=== PATIENT | female | born 1990 ===

== ENCOUNTER 2016-11-13 22:05 | Emergency (ER) | payer SELFPAY ==
[2016-11-13 22:36] VITALS: BP 119/75; PULSE 74; RESP 18; TEMP 98.9; O2SAT 100
--- NOTE | 2016-11-13 22:46 | ED PDOC ---
HPI: Abdomen Time Seen by Provider: 11/13/16 22:39 Chief Complaint (Nursing): Abdominal Pain History Per: Patient (Sharp RLQ abd pain x 2 days. Not assoc with NVD no urinary sxs. No fever. Irregular periods x 3 months. Pain radiates to right side back) Onset/Duration Of Symptoms: Days (2) Current Symptoms Are (Timing): Still Present Severity: Mild Pain Scale Rating Of: 2 Location Of Pain/Discomfort: RLQ Quality Of Discomfort: Sharp Associated Symptoms: denies: Fever, Nausea, Vomiting, Diarrhea, Urinary Symptoms Exacerbating Factors: None Alleviating Factors: None Abnormal Vaginal Bleeding: Yes Past Medical History Vital Signs: Last Vital Signs Temp 98.9 F 11/13/16 22:31 Pulse 74 11/13/16 22:31 Resp 18 11/13/16 22:31 BP 119/75 11/13/16 22:31 Pulse Ox 100 11/13/16 22:46 - Surgical History Other surgeries: C section - Family History Family History: States: Unknown Family Hx - Allergies Allergies/Adverse Reactions: Allergies Allergy/AdvReac Type Severity Reaction Status Date / Time No Known Allergies Allergy Verified 11/13/16 22:31 Review of Systems ROS Statement: Except As Marked, All Systems Reviewed And Found Negative Gastrointestinal: Positive for: Abdominal Pain Physical Exam - Reviewed Nursing Documentation Reviewed: Yes Vital Signs Reviewed: Yes - Physical Exam Appears: Positive for: Non-toxic, No Acute Distress Head Exam: Positive for: ATRAUMATIC, NORMAL INSPECTION, NORMOCEPHALIC Skin: Positive for: Normal Color, Warm, DRY Eye Exam: Positive for: EOMI, Normal appearance, PERRL ENT: Positive for: Normal ENT Inspection Neck: Positive for: Normal, Painless ROM Cardiovascular/Chest: Positive for: Regular Rate, Rhythm Respiratory: Positive for: CNT, Normal Breath Sounds Gastrointestinal/Abdominal: Positive for: Bowel Sounds, Soft, Tenderness (RLQ) Back: Positive for: Normal Inspection Extremity: Positive for: Normal ROM Neurologic/Psych: Positive for: Alert, Oriented - Laboratory Results Result Diagrams: 11/13/16 23:36 11/13/16 23:36 - ECG O2 Sat by Pulse Oximetry: 100 Disposition - Clinical Impression Clinical Impression: Abdominal pain - Patient ED Disposition Is Patient to be Admitted: Transfer of Care - Disposition Disposition: Transfer of Care Disposition Time: 23:55 Condition: FAIR Forms: [employer] (Malagasy) Patient Signed Over To: Odilon Martinez
[2016-11-13] MEDS ORDERED: Sodium Chloride 0.9% 1,000 ML IV STA (23:40)
[2016-11-13 23:41] LABS: BASO # 0.1 K/uL (0.0-0.2); BASO % 0.7 % (0.0-2.0); EOS # 0.2 K/uL (0.0-0.7); EOS % 2.3 % (0.0-4.0); HEMOGLOBIN 13.3 g/dL (12.0-16.0); LYMPH # 3.5 K/uL (1.0-4.3); LYMPH % 41.3 % (20.0-40.0); MEAN CELL VOLUME 84.8 fl (81.0-99.0); MEAN CORPUSCULAR HEMOGLOBIN 28.1 pg (27.0-31.0); MEAN CORPUSCULAR HGB CONC 33.1 g/dL (33.0-37.0); MEAN PLATELET VOLUME 8.4 fl (7.2-11.7); MONO # 0.8 K/uL (0.0-0.8); MONO % 9.4 % (0.0-10.0); NEUT # 3.9 K/uL (1.8-7.0); NEUT % 46.3 % (50.0-75.0); NRBC % 0.1 % (0.0-0.0); RBC 4.73 Mil/uL (3.80-5.20); RED CELL DISTRIBUTION WIDTH 13.6 % (11.5-14.5); WHITE BLOOD COUNT 8.5 K/uL (4.8-10.8)
[2016-11-13 23:49] LABS: ALB/GLOB RATIO 1.4 (1.0-2.1); ALBUMIN 4.4 g/dL (3.5-5.0); ALT/SGPT 54 U/L (9-52); AST/SGOT 30 U/L (14-36); BLOOD UREA NITROGEN 15 mg/dl (7-17); CALCIUM 8.8 mg/dL (8.4-10.2); GFR AFRICAN-AMERICAN > 60; GFR NON-AFRICAN AMERICAN > 60
--- NOTE | 2016-11-14 00:15 | ED PDOC ---
- Laboratory Results Result Diagrams: 11/13/16 23:36 11/13/16 23:36 - ECG O2 Sat by Pulse Oximetry: 100 Medical Decision Making Medical Decision Makin Patient signed out to me from Dr. Juarez pending CT and US. Scribe Attestation: Documented by Jelena Patterson acting as a scribe for Odilon Martinez MD. Scribe Attestation: All medical record entries made by the Scribe were at my direction and personally dictated by me. I have reviewed the chart and agree that the record accurately reflects my personal performance of the history, physical exam, medical decision making, and the department course for this patient. I have also personally directed, reviewed, and agree with the discharge instructions and disposition. Disposition - Clinical Impression Clinical Impression: Abdominal pain - POA Present On Arrival: None - Disposition Referrals: [facility] [Outside] [facility] [Outside] Disposition: Hospitalized as Observation Patient Disposition Time: 00:00 Condition: FAIR Prescriptions: Dicyclomine [Dicyclomine HCl] 10 mg PO BID #20 cap Instructions: Pelvic Pain in Women (ED) Forms: [employer] (Kosovan) Print Language: MARSHALLESE ED OBSERVATION Discharge: Yes Date of observation admission: 11/14/16 Time of observation admission: 00:00 - Observation admission statement Patient is being placed in observation because:: Pending CT and US - Goals of Observation Goals of observation are:: CT and US results - Progress Note Progress Note: 11/14/16 01:18 Patient resting comfortably in room. Vitals stable. 11/14/16 01:30 CT FINDINGS Lower thorax: No acute findings. ABDOMEN: Liver: Unremarkable. No mass. Gallbladder and bile ducts: Unremarkable. No calcified stones. No ductal dilation. Pancreas: Unremarkable. No mass. No ductal dilation. Spleen: Unremarkable. No splenomegaly. Adrenals: Unremarkable. No mass. Kidneys and ureters: No obstructive or nonobstructive uropathy. Stomach and bowel: Unremarkable. No obstruction. No mucosal thickening. Appendix: The appendix is normal. PELVIS: Bladder: Unremarkable. No mass. Reproductive: Unremarkable as visualized. ABDOMEN and PELVIS: Intraperitoneal space: Unremarkable. No free air. No significant fluid collection. Bones/joints: No acute fracture. No dislocation. Soft tissues: Unremarkable. Vasculature: Unremarkable. No abdominal aortic aneurysm. Lymph nodes: Unremarkable. No enlarged lymph nodes. IMPRESSION: No acute obstructive or inflammatory process in the abdomen or pelvis. 11/14/16 02:33 US FINDINGS The uterus is normal. The endometrium measures 8 mm. Both ovaries measure approximately 3 x 2 x 2 centimeters. Bilateral ovarian follicles are present. Color flow and doppler vascular waveforms were demonstrated to both ovaries. There is no significant free fluid. IMPRESSION: No acute findings. 11/14/16 02:42 Upon re-evaluation, patient is feeling better and is stable for discharge home. [facility]. Return precautions given.
[2016-11-14] MEDS ORDERED: Sodium Chloride 0.9% 50 ML IV ONE (00:48)
[2016-11-14] MEDS ORDERED: Iohexol 300 100 ML IJ ONE (00:48)
--- NOTE | 2016-11-14 02:27 | US ---
EXAM: US Pelvis, Transvaginal CLINICAL HISTORY: 26 years old, female; Pain; Pelvic pain; Prior surgery; Surgery date: 6+ months; Surgery type: 2 c-sections; Additional info: Rlq pain TECHNIQUE: Real-time transvaginal pelvic ultrasound (complete) with image documentation. Transvaginal imaging was used for better evaluation of the endometrium and adnexa. EXAM DATE/TIME: 11/13/2016 11:58 PM COMPARISON: No relevant prior studies available. FINDINGS: The uterus is normal. The endometrium measures 8 mm. Both ovaries measure approximately 3 x 2 x 2 centimeters. Bilateral ovarian follicles are present. Color flow and doppler vascular waveforms were demonstrated to both ovaries. There is no significant free fluid. IMPRESSION: No acute findings.
--- NOTE | 2016-11-14 07:53 | CT ---
PROCEDURE: CT Abdomen and Pelvis with contrast HISTORY: RLQ pain COMPARISON: None. TECHNIQUE: Contrast dose: Omnipaque 300, 90 cc. Radiation dose: Total exam DLP = 450 mGy-cm. This CT exam was performed using one or more of the following dose reduction techniques: Automated exposure control, adjustment of the mA and/or kV according to patient size, and/or use of iterative reconstruction technique. FINDINGS: LOWER THORAX: Unremarkable. LIVER: Diffuse fatty infiltration of the liver is appreciated without focal mass or intrahepatic biliary dilatation evident. GALLBLADDER AND BILE DUCTS: Unremarkable. PANCREAS: Unremarkable. No gross lesion or ductal dilatation. SPLEEN: Unremarkable. ADRENALS: Unremarkable. No mass. KIDNEYS AND URETERS: Unremarkable. No hydronephrosis. No solid mass. VASCULATURE: Unremarkable. No aortic aneurysm. BOWEL: The stomach is distended with retained food. Unremarkable. No obstruction. No gross mural thickening. APPENDIX: Normal appendix. PERITONEUM: Unremarkable. No free fluid. No free air. LYMPH NODES: Shotty mesenteric and retroperitoneal nodes are identified without prominent lymphadenopathy identified. . BLADDER: Unremarkable. REPRODUCTIVE: Unremarkable. BONES: No acute fracture. OTHER FINDINGS: None. IMPRESSION: Nonacute abdomen pelvis CT examination. Diffuse fatty infiltration of the liver is identified. Concur with preliminary report by rad radiologist Dr. Raul Thomson.
== END 2016-11-14 03:03 | disposition home or self-care (01) ==
LOC: H.ER 22:05
DX: N83.00 Follicular cyst of ovary, unspecified side (principal); K76.0 Fatty (change of) liver, not elsewhere classified
CPT/HCPCS: 74177; 76830; 80053; 81025; 85025; 96374; 99282; J1885; J7040; Q9967

== ENCOUNTER 2017-03-14 20:31 | Emergency (ER) | payer OTHER ==
[2017-03-14 20:43] VITALS: BP 100/69; PULSE 86; RESP 16; TEMP 98.3; O2SAT 99
[2017-03-14] MEDS ORDERED: Sodium Chloride 0.9% 1,000 ML IV STA (21:29)
[2017-03-14 21:59] LABS: HEMATOCRIT 39.9 % (34.0-47.0); MEAN CELL VOLUME 84.7 fl (81.0-99.0); MEAN CORPUSCULAR HEMOGLOBIN 27.8 pg (27.0-31.0); MEAN CORPUSCULAR HGB CONC 32.8 g/dL (33.0-37.0); RED CELL DISTRIBUTION WIDTH 13.9 % (11.5-14.5); WHITE BLOOD COUNT 11.7 K/uL (4.8-10.8)
[2017-03-14 22:07] LABS: ALB/GLOB RATIO 1.3 (1.0-2.1); ALKALINE PHOSPHATASE 99 U/L (38-126); ALT/SGPT 47 U/L (9-52); AST/SGOT 32 U/L (14-36); BILIRUBIN,TOTAL 0.5 mg/dl (0.2-1.3); BLOOD UREA NITROGEN 18 mg/dl (7-17); CALCIUM 8.8 mg/dL (8.4-10.2); CARBON DIOXIDE 24 mmol/L (22-30); CHLORIDE 105 mmol/L (98-107); GFR AFRICAN-AMERICAN > 60; GLUCOSE,RANDOM 90 mg/dL (65-105); POTASSIUM 3.7 MMOL/L (3.6-5.0); SODIUM 139 mmol/l (132-148)
--- NOTE | 2017-03-14 23:20 | US ---
EXAM: US Pelvis, Transvaginal CLINICAL HISTORY: 26 years old, female; Pain; Pelvic pain; Additional info: Vaginal bleeding, right sided pain - preg (-) TECHNIQUE: Real-time transvaginal pelvic ultrasound (complete) with image documentation. Transvaginal imaging was used for better evaluation of the endometrium and adnexa. COMPARISON: No relevant prior studies available. FINDINGS: Uterus/cervix: Uterus measures 8 x 5.8 x 4.5 CM. Endometrium measures 7 mm in thickness. No myometrial mass. Right ovary: Right ovary measures 3.2 x 2.4 x 3.3 CM. 1.8 x 1.1 x 1.8 CM simple cyst. Normal blood flow. Left ovary: Left ovary measures 2.1 x 1.3 x 2.0 CM. Normal blood flow. Free fluid: No free fluid. Bladder: Empty bladder which cannot be evaluated with this probe. IMPRESSION: Uterus is unremarkable. No adnexal masses.
--- NOTE | 2017-03-14 23:37 | ED PDOC ---
HPI: Female Pain Time Seen by Provider: 03/14/17 21:08 Chief Complaint (Nursing): Female Genitourinary Chief Complaint (Provider): Right sided pelvic pain, abnormal menses History Per: Patient History/Exam Limitations: no limitations Onset/Duration Of Symptoms: Days Current Symptoms Are (Timing): Still Present Severity: Moderate Pain Scale Rating Of: 5 Quality Of Discomfort: Sharp, Cramping Associated Symptoms: Nausea. denies: Fever, Chills, Loss Of Appetite Alleviating Factors: None Additional Complaint(s): Pt states her menses was normal January 26 and she had vaginal bleeding for 1 day February 26. Pt states she than began bleeding again 3 days ago. Pt states she has yellow/orange fluid coming from the vaginal. Pt denies dysuria. Pt states that she has been taking pyridum for right sided pelvic pain but it is not working. Past Medical History Reviewed: Historical Data, Nursing Documentation, Vital Signs Vital Signs: Last Vital Signs Temp 98.3 F 03/14/17 20:40 Pulse 86 03/14/17 20:40 Resp 16 03/14/17 20:40 BP 100/69 03/14/17 20:40 Pulse Ox 99 03/14/17 20:40 - Medical History PMH: No Chronic Diseases - Surgical History Surgical History: No Surg Hx - Family History Family History: States: Unknown Family Hx - Home Medications Home Medications: Ambulatory Orders Medication Instructions Recorded Dicyclomine [Dicyclomine HCl] 10 mg PO BID #20 cap 11/14/16 Ibuprofen [Motrin Tab] 800 mg PO Q6H PRN #20 tab 03/14/17 - Allergies Allergies/Adverse Reactions: Allergies Allergy/AdvReac Type Severity Reaction Status Date / Time No Known Allergies Allergy Verified 03/14/17 20:40 Review of Systems ROS Statement: Except As Marked, All Systems Reviewed And Found Negative Constitutional: Negative for: Fever, Chills Gastrointestinal: Negative for: Nausea, Vomiting Genitourinary Female: Positive for: Vaginal Bleeding, Pelvic Pain Physical Exam - Reviewed Nursing Documentation Reviewed: Yes Vital Signs Reviewed: Yes - Physical Exam Appears: Positive for: Well, Non-toxic, No Acute Distress Head Exam: Positive for: ATRAUMATIC, NORMAL INSPECTION, NORMOCEPHALIC Skin: Positive for: Normal Color, Warm, DRY Eye Exam: Positive for: Normal appearance ENT: Positive for: Normal ENT Inspection Neck: Positive for: Normal, Painless ROM Cardiovascular/Chest: Positive for: Regular Rate, Rhythm Respiratory: Positive for: Normal Breath Sounds. Negative for: Accessory Muscle Use, Respiratory Distress Gastrointestinal/Abdominal: Positive for: Normal Exam, Bowel Sounds, Soft. Negative for: Tenderness Pelvic Exam: Positive for: External Exam Normal, No Cerv. Motion Tender, No Masses, Discharge (Yellow/orange, homogenous ). Negative for: Bimanual Exam Normal (Right sided tenderness ), Active Bleeding Back: Positive for: Normal Inspection Extremity: Positive for: Normal ROM Neurologic/Psych: Positive for: Alert, Oriented - Laboratory Results Result Diagrams: 03/14/17 21:49 03/14/17 21:49 - ECG O2 Sat by Pulse Oximetry: 99 Disposition - Clinical Impression Clinical Impression: Abnormal menses, Ovarian cyst - Patient ED Disposition Is Patient to be Admitted: No Counseled Patient/Family Regarding: Diagnosis - Disposition Disposition: Routine/Home Disposition Time: 23:39 Condition: GOOD Prescriptions: Ibuprofen [Motrin Tab] 800 mg PO Q6H PRN #20 tab PRN Reason: Pain Instructions: Ovarian Cyst (ED) Print Language: SERBIAN
== END 2017-03-15 00:29 | disposition home or self-care (01) ==
LOC: H.ER 20:31
DX: N83.202 Unspecified ovarian cyst, left side (principal); N93.9 Abnormal uterine and vaginal bleeding, unspecified
CPT/HCPCS: 76830; 80053; 81025; 85027; 87070; 87086; 87491; 87591; 96361; 96374; 96375; 99283; J1885; J2270; J7040

== ENCOUNTER 2017-05-20 13:56 | Emergency (ER) | payer OTHER ==
[2017-05-20 14:15] VITALS: BP 113/63; PULSE 74; RESP 16; TEMP 98; O2SAT 99
--- NOTE | 2017-05-20 16:46 | ED PDOC ---
HPI: Headache Time Seen by Provider: 05/20/17 16:30 Chief Complaint (Nursing): Headache Chief Complaint (Provider): Headache History Per: Patient History/Exam Limitations: no limitations Onset/Duration Of Symptoms: Days (x4) Current Symptoms Are (Timing): Still Present Additional Complaint(s): 26 year old female presents to the ER complaining of a constant headache for 4 days. Associated with watery diarrhea (occurring after meals) and nausea. Denies any cough, fever, chills, or body aches. Patient has not taken any medications for symptom relief prior to arrival. PMD: None Past Medical History Reviewed: Historical Data, Nursing Documentation, Vital Signs Vital Signs: Last Vital Signs Temp 98.0 F 05/20/17 14:13 Pulse 74 05/20/17 14:13 Resp 16 05/20/17 14:13 BP 113/63 05/20/17 14:13 Pulse Ox 99 05/20/17 14:13 - Family History Family History: States: Unknown Family Hx - Home Medications Home Medications: Ambulatory Orders Medication Instructions Recorded Dicyclomine [Dicyclomine HCl] 10 mg PO BID #20 cap 11/14/16 Ibuprofen [Motrin Tab] 800 mg PO Q6H PRN #20 tab 03/14/17 Acetaminophen/Butalbital/Caf 1 tab PO Q4 #10 tab 05/20/17 [Fioricet] - Allergies Allergies/Adverse Reactions: Allergies Allergy/AdvReac Type Severity Reaction Status Date / Time No Known Allergies Allergy Verified 03/14/17 20:40 Review of Systems ROS Statement: Except As Marked, All Systems Reviewed And Found Negative Constitutional: Negative for: Fever, Chills, Other (Body aches) Respiratory: Negative for: Cough Gastrointestinal: Positive for: Nausea, Diarrhea Neurological: Positive for: Headache Physical Exam - Reviewed Nursing Documentation Reviewed: Yes Vital Signs Reviewed: Yes - Physical Exam Appears: Positive for: Non-toxic, No Acute Distress Head Exam: Positive for: ATRAUMATIC, NORMAL INSPECTION, NORMOCEPHALIC Skin: Positive for: Normal Color, Warm, Dry Eye Exam: Positive for: EOMI, Normal appearance, PERRL Neck: Positive for: Normal (with bilateral paracervical tenderness) Cardiovascular/Chest: Positive for: Regular Rate, Rhythm. Negative for: Murmur Respiratory: Positive for: Normal Breath Sounds. Negative for: Accessory Muscle Use, Respiratory Distress Gastrointestinal/Abdominal: Positive for: Normal Exam, Soft. Negative for: Tenderness Neurologic/Psych: Positive for: Alert, Oriented - Laboratory Results Result Diagrams: 05/20/17 17:22 05/20/17 17:22 - ECG O2 Sat by Pulse Oximetry: 99 (RA) Pulse Ox Interpretation: Normal Medical Decision Making Medical Decision Making: Time: 16:48 Initial Plan: --BMP --CBC --Sodium chloride IV 1000 ml at 1000 mls/hr --Reglan 10 mg IV --Pepcid 20 mg IV Scribe Attestation: Documented by Senia Duong, acting as a scribe for Lissette Chi PA-C Provider Scribe Attestation: All medical record entries made by the Scribe were at my direction and personally dictated by me. I have reviewed the chart and agree that the record accurately reflects my personal performance of the history, physical exam, medical decision making, and the department course for this patient. I have also personally directed, reviewed, and agree with the discharge instructions and disposition. Disposition - Clinical Impression Clinical Impression: Headache - Patient ED Disposition Is Patient to be Admitted: Transfer of Care - Disposition Referrals: [facility] [Outside] Disposition: Transfer of Care Disposition Time: 18:00 Condition: FAIR Prescriptions: Acetaminophen/Butalbital/Caf [Fioricet] 1 tab PO Q4 #10 tab Instructions: Migraine Headache (ED) Forms: [employer] (Dutch), [facility] ED School/Work Excuse Print Language: EAST TIMORESE Patient Signed Over To: Maranda Landa Handoff Comments: RE-EVALUATION
[2017-05-20] MEDS ORDERED: Sodium Chloride 0.9% 1,000 ML IV STA (16:49)
[2017-05-20 17:26] LABS: BASO # 0.1 K/uL (0.0-0.2); BASO % 0.8 % (0.0-2.0); EOS # 0.1 K/uL (0.0-0.7); EOS % 1.2 % (0.0-4.0); HEMOGLOBIN 13.4 g/dL (12.0-16.0); LYMPH % 31.7 % (20.0-40.0); MEAN CELL VOLUME 84.9 fl (81.0-99.0); MEAN CORPUSCULAR HGB CONC 32.9 g/dL (33.0-37.0); MEAN PLATELET VOLUME 8.5 fl (7.2-11.7); MONO # 0.7 K/uL (0.0-0.8); MONO % 7.8 % (0.0-10.0); NEUT # 5.6 K/uL (1.8-7.0); NEUT % 58.5 % (50.0-75.0); NRBC % 0.1 % (0.0-0.0); RBC 4.78 Mil/uL (3.80-5.20); WHITE BLOOD COUNT 9.5 K/uL (4.8-10.8)
[2017-05-20 17:56] LABS: BLOOD UREA NITROGEN 16 mg/dl (7-17); CALCIUM 9.2 mg/dL (8.4-10.2); GFR AFRICAN-AMERICAN > 60; GFR NON-AFRICAN AMERICAN > 60
--- NOTE | 2017-05-20 18:42 | ED PDOC ---
- Laboratory Results Result Diagrams: 05/20/17 17:22 05/20/17 17:22 - ECG O2 Sat by Pulse Oximetry: 99 (RA) Medical Decision Making Medical Decision Making: Case endorsed to medical writer from VERO Chi at 1800 pending re-eval 1900: pt asking to go home. reports feeling improved. neuro exam remains non focal Disposition - Clinical Impression Clinical Impression: Headache - POA Present On Arrival: None - Disposition Referrals: [facility] [Outside] Disposition: Routine/Home Disposition Time: 19:35 Condition: FAIR Prescriptions: Acetaminophen/Butalbital/Caf [Fioricet] 1 tab PO Q4 #10 tab Instructions: Migraine Headache (ED) Forms: [employer] (Anguillan), [facility] ED School/Work Excuse Print Language: MOZAMBICAN
== END 2017-05-20 19:30 | disposition home or self-care (01) ==
LOC: H.ER 13:56
DX: R51 Headache (principal)
CPT/HCPCS: 80048; 81025; 85025; 96374; 96375; 99284; J2765; J7040

== ENCOUNTER 2017-08-10 18:48 | Emergency (ER) | payer OTHER ==
[2017-08-10 19:01] VITALS: TEMP 98.2
[2017-08-10] MEDS ORDERED: Iohexol 240 (50 ml) PO ONE (19:25)
[2017-08-10] MEDS ORDERED: Sodium Chloride 0.9% 1,000 ML IV STA (19:27)
[2017-08-10] MEDS ORDERED: Iohexol 240 (50 ml) ONE (19:40)
[2017-08-10] MEDS ORDERED: Morphine 4 MG/ML VIAL IV ONE (19:42)
--- NOTE | 2017-08-10 19:43 | ED PDOC ---
HPI: Abdomen Time Seen by Provider: 08/10/17 19:00 Chief Complaint (Nursing): Abdominal Pain Chief Complaint (Provider): Right abdominal pain History Per: Patient History/Exam Limitations: no limitations Onset/Duration Of Symptoms: Days (1) Outside of [place] travel?: No Current Symptoms Are (Timing): Still Present Location Of Pain/Discomfort: RLQ Quality Of Discomfort: "Pain" Associated Symptoms: Nausea, Vomiting (x 5), Back Pain, Other (headache). denies: Diarrhea, Urinary Symptoms Additional History Per: Patient Additional Complaint(s): 26yo female, with no past medical history, presents to the ER for evaluation of right sided abdominal pain. She reports the pain radiates to the back and she has associated headache as well. Patient reports today she has had nausea and 5x episodes of vomiting. She took Motrin yesterday and this morning with no relief. She denies any fever, chills, diarrhea, dysuria, hematuria, trauma or injury to the abdomen. Of note, patient states she took a home test which was negative. She denies any other medical complaints. Abnormal Vaginal Bleeding: No Last Menstral Period: 07/08/17 Past Medical History Reviewed: Historical Data, Nursing Documentation, Vital Signs Vital Signs: Last Vital Signs Temp 98.2 F 08/10/17 18:57 Pulse 65 08/11/17 00:02 Resp 20 08/11/17 00:02 BP 105/67 08/11/17 00:02 Pulse Ox 99 08/11/17 00:14 - Medical History PMH: No Chronic Diseases - Surgical History Surgical History: No Surg Hx - Family History Family History: States: No Known Family Hx, Unknown Family Hx - Social History Current smoker - smoking cessation education provided: No Alcohol: None Drugs: Denies - Home Medications Home Medications: Ambulatory Orders Medication Instructions Recorded Dicyclomine [Dicyclomine HCl] 10 mg PO BID #20 cap 11/14/16 Ibuprofen [Motrin Tab] 800 mg PO Q6H PRN #20 tab 03/14/17 Acetaminophen/Butalbital/Caf 1 tab PO Q4 #10 tab 05/20/17 [Fioricet] - Allergies Allergies/Adverse Reactions: Allergies Allergy/AdvReac Type Severity Reaction Status Date / Time No Known Allergies Allergy Verified 08/10/17 18:57 Review of Systems ROS Statement: Except As Marked, All Systems Reviewed And Found Negative Constitutional: Negative for: Fever, Chills Gastrointestinal: Positive for: Nausea, Vomiting, Abdominal Pain. Negative for : Diarrhea Genitourinary Female: Negative for: Dysuria, Hematuria Musculoskeletal: Positive for: Back Pain Neurological: Positive for: Headache Physical Exam - Reviewed Nursing Documentation Reviewed: Yes Vital Signs Reviewed: Yes - Physical Exam Appears: Positive for: Non-toxic, No Acute Distress Head Exam: Positive for: ATRAUMATIC, NORMAL INSPECTION, NORMOCEPHALIC Skin: Positive for: Normal Color, Warm Eye Exam: Positive for: Normal appearance, PERRL ENT: Negative for: Pharyngeal Erythema, Tonsillar Exudate, Tonsillar Swelling Neck: Positive for: Normal, Supple Cardiovascular/Chest: Positive for: Regular Rate, Rhythm Respiratory: Positive for: Normal Breath Sounds. Negative for: Respiratory Distress Gastrointestinal/Abdominal: Positive for: Bowel Sounds, Soft, Tenderness ( tenderness to right lower quadrant). Negative for: Mass, Distended, Rebound Back: Positive for: Normal Inspection Extremity: Positive for: Normal ROM. Negative for: Deformity Neurologic/Psych: Positive for: Alert, Oriented. Negative for: Motor/Sensory Deficits - Laboratory Results Result Diagrams: 08/10/17 20:07 08/10/17 20:07 - ECG O2 Sat by Pulse Oximetry: 99 (RA) Pulse Ox Interpretation: Normal Medical Decision Making Medical Decision Making: Impression: Abdominal pain, r/o appendicitis Plan: -- Labs -- Morphine 4mg IV -- Zofran 4mg ODT -- CT Abdomen/Pelvis w/ PO & IV Contrast -- Pepcid 20mg IVP -- Urinalysis Time: 2338 --CT ABD/pelvis FINDINGS: Lung bases: No acute findings. ABDOMEN: Liver: Fatty infiltration. 0.6 cm cm lesion with flash filling enhancement. Gallbladder and bile ducts: No calcified stones. No ductal dilation. Pancreas: No ductal dilation. No mass. Spleen: No splenomegaly. Adrenals: No mass. Kidneys and ureters: No mass. No hydronephrosis. Stomach and bowel: No definite mural thickening. No obstruction. PELVIS: Appendix: Normal caliber. No inflammation. Bladder: Unremarkable. Reproductive: Unremarkable as visualized. ABDOMEN and PELVIS: Intraperitoneal space: No significant fluid collection. No free air. Bones/joints: No acute fracture. Soft tissues: Small umbilical hernia containing fat. Vasculature: Unremarkable. No aneurysm. Lymph nodes: No pathologically enlarged lymph nodes. IMPRESSION: 1. No definite acute intraabdominal abnormality. 2. Liver lesion. For patients with low to average risk of malignancy, no further follow-up is necessary. For patients with high risk of malignancy, recommend follow-up abdominal CT or MR in 6 months or for suspicious lesions, multiphasic MR. 3. Incidental/non-acute findings are described above Time: 2353 --Upon provider reevaluation, patient is feeling better, is aware of CT results , tolerating PO, medically stable,and requires no further treatment in the ED at this time. Urine is negative for infection. Patient will be discharged home. Counseling was provided and all questions were answered regarding diagnosis and need for follow up with clinic. There is agreement to discharge plan. Return if symptoms persist or worsen. Clinical Impression: Abdominal discomfort Scribe Attestation: Documented by Reyna Jefferson and Milla Cadena, acting as scribes for Namrata Rick MD Provider Attestation: All medical record entries made by the Scribe were at my direction and personally dictated by me. I have reviewed the chart and agree that the record accurately reflects my personal performance of the history, physical exam, medical decision making, and the department course for this patient. I have also personally directed, reviewed, and agree with the discharge instructions and disposition. Disposition - Clinical Impression Clinical Impression: Abdominal discomfort - Patient ED Disposition Is Patient to be Admitted: No Counseled Patient/Family Regarding: Studies Performed, Diagnosis, Need For Followup - Disposition Referrals: [facility] [Outside] [facility] [Outside] Disposition: Routine/Home Disposition Time: 23:00 Condition: IMPROVED Additional Instructions: follow up with your primary doctor in 1-2 days return to the ED with any worsening or concerning symptoms Instructions: Acute Abdomen (Belly Pain), Adult (DC) Forms: [employer] (Mosotho)
[2017-08-10] MEDS ORDERED: Morphine 4 MG/ML VIAL ONE (19:44)
[2017-08-10 20:13] LABS: BASO # 0.1 K/uL (0.0-0.2); BASO % 0.7 % (0.0-2.0); EOS # 0.1 K/uL (0.0-0.7); EOS % 1.6 % (0.0-4.0); HEMOGLOBIN 13.3 g/dL (12.0-16.0); LYMPH # 3.2 K/uL (1.0-4.3); LYMPH % 38.2 % (20.0-40.0); MEAN CELL VOLUME 83.8 fl (81.0-99.0); MEAN CORPUSCULAR HEMOGLOBIN 28.1 pg (27.0-31.0); MEAN CORPUSCULAR HGB CONC 33.5 g/dL (33.0-37.0); MEAN PLATELET VOLUME 8.4 fl (7.2-11.7); MONO # 0.7 K/uL (0.0-0.8); MONO % 8.3 % (0.0-10.0); NEUT # 4.3 K/uL (1.8-7.0); NEUT % 51.2 % (50.0-75.0); RBC 4.75 Mil/uL (3.80-5.20); RED CELL DISTRIBUTION WIDTH 13.5 % (11.5-14.5); WHITE BLOOD COUNT 8.5 K/uL (4.8-10.8)
[2017-08-10 20:24] LABS: ALB/GLOB RATIO 1.2 (1.0-2.1); ALBUMIN 4.2 g/dL (3.5-5.0); ALT/SGPT 42 U/L (9-52); AST/SGOT 32 U/L (14-36); BLOOD UREA NITROGEN 14 mg/dl (7-17); CALCIUM 8.6 mg/dL (8.4-10.2); GFR AFRICAN-AMERICAN > 60; GFR NON-AFRICAN AMERICAN > 60; LIPASE 64 U/L (23-300)
[2017-08-10 20:52] LABS: SQUAMOUS EPITHIAL 7 /hpf (0-5); URINE BILIRUBIN NEGATIVE (NEGATIVE); URINE BLOOD NEGATIVE (NEGATIVE); URINE CLARITY CLOUDY (Clear); URINE COLOR YELLOW (YELLOW); URINE GLUCOSE (UA) NEG (Normal); URINE LEUKOCYTE ESTERASE SMALL Leu/uL (Negative); URINE PROTEIN NEGATIVE (NEGATIVE); URINE UROBILINOGEN 0.2-1.0 mg/dL (0.2-1.0)
[2017-08-10] MEDS ORDERED: Iohexol 300 100 ML IJ ONE (21:53)
[2017-08-10] MEDS ORDERED: Sodium Chloride 0.9% 100 ML ONE (21:53)
--- NOTE | 2017-08-10 23:38 | CT ---
EXAM: CT Abdomen and Pelvis With Intravenous Contrast CLINICAL HISTORY: 26 years old, female; Pain; Abdominal pain; Localized; Right lower quadrant (rlq); Prior surgery; Surgery date: 6+ months; Surgery type: 2 c-sections; Additional info: Abdominal pain r sided TECHNIQUE: Axial computed tomography images of the abdomen and pelvis with intravenous contrast. All CT scans at this facility use one or more dose reduction techniques, viz.: automated exposure control; ma/kV adjustment per patient size (including targeted exams where dose is matched to indication; i.e. head); or iterative reconstruction technique. Coronal and sagittal reformatted images were created and reviewed. CONTRAST: 90 mL of [id number] administered intravenously. COMPARISON: CT - ABD PELVIS IV CONTRAST ONLY 2016-11-14 01:00 FINDINGS: Lung bases: No acute findings. ABDOMEN: Liver: Fatty infiltration. 0.6 cm cm lesion with flash filling enhancement. Gallbladder and bile ducts: No calcified stones. No ductal dilation. Pancreas: No ductal dilation. No mass. Spleen: No splenomegaly. Adrenals: No mass. Kidneys and ureters: No mass. No hydronephrosis. Stomach and bowel: No definite mural thickening. No obstruction. PELVIS: Appendix: Normal caliber. No inflammation. Bladder: Unremarkable. Reproductive: Unremarkable as visualized. ABDOMEN and PELVIS: Intraperitoneal space: No significant fluid collection. No free air. Bones/joints: No acute fracture. Soft tissues: Small umbilical hernia containing fat. Vasculature: Unremarkable. No aneurysm. Lymph nodes: No pathologically enlarged lymph nodes. IMPRESSION: 1. No definite acute intraabdominal abnormality. 2. Liver lesion. For patients with low to average risk of malignancy, no further follow-up is necessary. For patients with high risk of malignancy, recommend follow-up abdominal CT or MR in 6 months or for suspicious lesions, multiphasic MR. 3. Incidental/non-acute findings are described above.
[2017-08-11 00:02] VITALS: BP 105/67; PULSE 65; RESP 20
[2017-08-11 00:14] VITALS: O2SAT 99
== END 2017-08-11 00:10 | disposition home or self-care (01) ==
LOC: H.ER 18:48
DX: K76.9 Liver disease, unspecified (principal)
CPT/HCPCS: 74177; 80053; 81003; 81025; 83690; 85025; 87086; 96361; 96374; 96375; 99284; J1885; J2270; J7040; Q9966; Q9967

== ENCOUNTER 2018-04-13 13:56 | Emergency (ER) | payer OTHER ==
[2018-04-13 15:52] VITALS: TEMP 98.7
--- NOTE | 2018-04-13 17:58 | ED PDOC ---
HPI: Abdomen Time Seen by Provider: 04/13/18 16:55 Chief Complaint (Nursing): Abdominal Pain Chief Complaint (Provider): Abdominal Pain History Per: Patient History/Exam Limitations: no limitations Onset/Duration Of Symptoms: Days (x2) Current Symptoms Are (Timing): Still Present Additional Complaint(s): Patient is a 27 y/o female with no significant PMHx who presents to the ED for evaluation of constant lower, right sided abdominal pain, ongoing for the past two days. Patient states the pain has been radiating upward. Patient also admitted to a subjective fever. Patient denies N/V/D, constipation, chills, and urinary or vaginal symptoms. Patient took Tylenol yesterday but her symptoms did not improve. Of note, patient was seen in ER for similar pain last year, however, her workup was negative for CT and labs. PCP: None Provided Past Medical History Reviewed: Historical Data, Nursing Documentation, Vital Signs Vital Signs: Last Vital Signs Temp 98.7 F 04/13/18 15:48 Pulse 67 04/13/18 15:48 Resp 17 04/13/18 15:48 BP 130/86 04/13/18 15:48 Pulse Ox 99 04/13/18 15:48 - Medical History PMH: No Chronic Diseases - Surgical History Surgical History: (x2) - Family History Family History: States: Unknown Family Hx - Social History Current smoker - smoking cessation education provided: No Alcohol: Occasional Drugs: Denies - Home Medications Home Medications: Ambulatory Orders Medication Instructions Recorded Dicyclomine [Dicyclomine HCl] 10 mg PO BID #20 cap 11/14/16 Ibuprofen [Motrin Tab] 800 mg PO Q6H PRN #20 tab 03/14/17 Acetaminophen/Butalbital/Caf 1 tab PO Q4 #10 tab 05/20/17 [Fioricet] Dicyclomine [Bentyl] 20 mg PO QID PRN #20 tab 04/13/18 RX: Ibuprofen [Motrin Tab] 600 mg PO Q8 PRN #60 tab 04/13/18 RX: traMADol [Ultram] 50 mg PO TID #15 tab 04/13/18 - Allergies Allergies/Adverse Reactions: Allergies Allergy/AdvReac Type Severity Reaction Status Date / Time No Known Allergies Allergy Verified 04/13/18 15:48 Review of Systems ROS Statement: Except As Marked, All Systems Reviewed And Found Negative (as per HPI) Constitutional: Positive for: Fever (Subjective). Negative for: Chills Gastrointestinal: Positive for: Abdominal Pain (Worse on right, lower abd; radiates up). Negative for: Nausea, Vomiting, Diarrhea, Constipation Genitourinary Female: Negative for: Dysuria, Hematuria, Vaginal Discharge, Vaginal Bleeding Physical Exam - Reviewed Nursing Documentation Reviewed: Yes Vital Signs Reviewed: Yes - Physical Exam Appears: Positive for: Well, No Acute Distress Head Exam: Positive for: ATRAUMATIC, NORMOCEPHALIC Skin: Positive for: Warm, Dry Eye Exam: Positive for: EOMI, PERRL ENT: Negative for: Pharyngeal Erythema, Tonsillar Exudate Neck: Positive for: Painless ROM, Supple Cardiovascular/Chest: Positive for: Regular Rate, Rhythm. Negative for: Murmur Respiratory: Positive for: Normal Breath Sounds. Negative for: Respiratory Distress Gastrointestinal/Abdominal: Positive for: Soft, Tenderness (RUQ, RLQ - Positive for King's and [place]'s Point). Negative for: Mass, Distended, Guarding, Rebound Back: Positive for: Normal Inspection. Negative for: Decreased ROM Extremity: Positive for: Normal ROM. Negative for: Deformity Neurologic/Psych: Positive for: Alert. Negative for: Motor/Sensory Deficits - Laboratory Results Result Diagrams: 04/13/18 18:00 04/13/18 18:00 - ECG O2 Sat by Pulse Oximetry: 99 (RA) Pulse Ox Interpretation: Normal Medical Decision Making Medical Decision Making: Time: 1715 Impression: Abdominal Pain DDx includes but not limited to gall stones, colitis, , UTI, and ovarian cyst. Plan: CMP Lipase Urine Urine Dipstick CBC IV Insertion ([place]) Abdomen Completes [US] Transvaginal [US] Time: 1904 Transvaginal US FINDINGS: UTERUS: Measures 7.1 x 5.3 x 3.9 cm. Anteverted. ENDOMETRIUM: Measures 1.2 cm in diameter. CERVIX: No cervical abnormality identified. RIGHT OVARY: Measures 2.1 x 2.8 x 2.9 cm. Blood flow is demonstrated. LEFT OVARY: Measures 3.7 x 2.9 x 1.5 cm. Blood flow is demonstrated. FREE FLUID: No significant free fluid noted. OTHER FINDINGS: None. IMPRESSION: Unremarkable pelvic ultrasound. Time: 1910 Abd US FINDINGS: LIVER: Measures 12.8 cm in sagittal dimension. Echogenic liver may be seen in setting of hepatic parenchymal disease or fatty infiltration. No focal hepatic mass identified. The main portal vein appears patent with normal directional flow. No intrahepatic bile duct dilatation. GALLBLADDER: No gallstones. No gallbladder wall thickening. Negative sonographic King's sign as assessed by the fruit packer face and fill. COMMON BILE DUCT: Measures 4 mm. PANCREAS: Not well visualized. RIGHT KIDNEY: Measures 11.0 x 5.5 x 4.2 cm. No obstructing calculus or hydronephrosis identified. LEFT KIDNEY: Measures 10.0 x 5.1 x 4.9 cm. No obstructing calculus or hydronephrosis identified. SPLEEN: Measures approximately 7.8 cm. AORTA: Limited views appear unremarkable. IVC: Limited views appear unremarkable. OTHER FINDINGS: None. IMPRESSION: Echogenic liver may be seen in setting of hepatic parenchymal disease or fatty infiltration. Time: 1919 No clinically significant lab abnormality. Scribe Attestation: Documented by Enmanuel Mcintosh, acting as a scribe for Maranda Joel MD. Provider Scribe Attestation: All medical record entries made by the Scribe were at my direction and persona lly dictated by me. I have reviewed the chart and agree that the record accurately reflects my personal performance of the history, physical exam, medical decision making, and the department course for this patient. I have also personally directed, reviewed, and agree with the discharge instructions and disposition. Disposition - Clinical Impression Clinical Impression: Abdominal pain Counseled Patient/Family Regarding: Studies Performed, Diagnosis - Disposition Referrals: [facility] [Outside] - 04/14/18 Disposition: Routine/Home Disposition Time: 20:00 Condition: STABLE Prescriptions: Dicyclomine [Bentyl] 20 mg PO QID PRN #20 tab PRN Reason: abdominal pain RX: Ibuprofen [Motrin Tab] 600 mg PO Q8 PRN #60 tab PRN Reason: Pain, Moderate (4-7) RX: traMADol [Ultram] 50 mg PO TID #15 tab Instructions: Acute Abdomen (Belly Pain), Adult (DC) Forms: [facility] ED School/Work Excuse Print Language: ITALIAN
[2018-04-13 18:06] LABS: BASO # 0.1 K/uL (0.0-0.2); BASO % 0.9 % (0.0-2.0); EOS # 0.1 K/uL (0.0-0.7); EOS % 1.4 % (0.0-4.0); HEMOGLOBIN 13.9 g/dL (12.0-16.0); LYMPH # 3.2 K/uL (1.0-4.3); LYMPH % 34.4 % (20.0-40.0); MEAN CELL VOLUME 84.6 fl (81.0-99.0); MEAN CORPUSCULAR HEMOGLOBIN 28.1 pg (27.0-31.0); MEAN CORPUSCULAR HGB CONC 33.2 g/dL (33.0-37.0); MEAN PLATELET VOLUME 8.5 fl (7.2-11.7); MONO # 0.8 K/uL (0.0-0.8); MONO % 8.3 % (0.0-10.0); NEUT # 5.2 K/uL (1.8-7.0); RBC 4.96 Mil/uL (3.80-5.20); RED CELL DISTRIBUTION WIDTH 13.8 % (11.5-14.5); WHITE BLOOD COUNT 9.4 K/uL (4.8-10.8)
[2018-04-13 18:20] LABS: ALB/GLOB RATIO 1.2 (1.0-2.1); ALBUMIN 4.9 g/dL (3.5-5.0); ALT/SGPT 32 U/L (9-52); AST/SGOT 30 U/L (14-36); BLOOD UREA NITROGEN 15 mg/dl (7-17); CALCIUM 9.4 mg/dL (8.4-10.2); GFR NON-AFRICAN AMERICAN > 60; LIPASE 87 U/L (23-300)
--- NOTE | 2018-04-13 19:09 | US ---
Date of service: 04/13/2018 HISTORY: pelvic pain COMPARISON: Transvaginal pelvic ultrasound performed 03/14/17 TECHNIQUE: Transvaginal pelvic ultrasound FINDINGS: UTERUS: Measures 7.1 x 5.3 x 3.9 cm. Anteverted. ENDOMETRIUM: Measures 1.2 cm in diameter. CERVIX: No cervical abnormality identified. RIGHT OVARY: Measures 2.1 x 2.8 x 2.9 cm. Blood flow is demonstrated. LEFT OVARY: Measures 3.7 x 2.9 x 1.5 cm. Blood flow is demonstrated. FREE FLUID: No significant free fluid noted. OTHER FINDINGS: None. IMPRESSION: Unremarkable pelvic ultrasound.
--- NOTE | 2018-04-13 19:15 | US ---
HISTORY: RUQ pain COMPARISON: CT abdomen and pelvis with contrast performed 08/10/17 TECHNIQUE: Sonographic evaluation of the abdomen. FINDINGS: LIVER: Measures 12.8 cm in sagittal dimension. Echogenic liver may be seen in setting of hepatic parenchymal disease or fatty infiltration. No focal hepatic mass identified. The main portal vein appears patent with normal directional flow. No intrahepatic bile duct dilatation. GALLBLADDER: No gallstones. No gallbladder wall thickening. Negative sonographic King's sign as assessed by the shipping support clerk. COMMON BILE DUCT: Measures 4 mm. PANCREAS: Not well visualized. RIGHT KIDNEY: Measures 11.0 x 5.5 x 4.2 cm. No obstructing calculus or hydronephrosis identified. LEFT KIDNEY: Measures 10.0 x 5.1 x 4.9 cm. No obstructing calculus or hydronephrosis identified. SPLEEN: Measures approximately 7.8 cm. AORTA: Limited views appear unremarkable. IVC: Limited views appear unremarkable. OTHER FINDINGS: None. IMPRESSION: Echogenic liver may be seen in setting of hepatic parenchymal disease or fatty infiltration.
[2018-04-13 19:44] VITALS: RESP 15
[2018-04-13 21:41] VITALS: BP 100/60; PULSE 67
[2018-04-17 00:12] VITALS: O2SAT 99
== END 2018-04-13 21:48 | disposition home or self-care (01) ==
LOC: H.ER 13:56
DX: R10.9 Unspecified abdominal pain (principal)
CPT/HCPCS: 76700; 76830; 80053; 81025; 83690; 85025; 96374; 99284; J1885

== ENCOUNTER 2018-04-23 13:30 | Emergency (ER) | payer OTHER ==
[2018-04-23 13:58] VITALS: BP 133/89; PULSE 86; RESP 17; TEMP 98.7; O2SAT 100
--- NOTE | 2018-04-23 14:22 | ED PDOC ---
HPI: Abdomen Time Seen by Provider: 04/23/18 14:19 Chief Complaint (Nursing): Abdominal Pain Chief Complaint (Provider): Abdominal Pain History Per: Patient History/Exam Limitations: no limitations Additional Complaint(s): 27 year old female presents to the ED with intermittent lower abdominal pain and today associated with menstrual cycle. Patient states she notes pain is worse when having sexual intercourse. Denies dysuria. Patient has tried different controls including diaphragm, OCP, and Depo. She feels pain is persistent despite any of these medications. Patient is concerned pain has worsened since receiving Depo shot. PMD: none Past Medical History Reviewed: Historical Data, Nursing Documentation, Vital Signs Vital Signs: Last Vital Signs Temp 98.7 F 04/23/18 13:54 Pulse 86 04/23/18 13:54 Resp 17 04/23/18 13:54 BP 133/89 04/23/18 13:54 Pulse Ox 100 04/23/18 13:54 - Medical History PMH: No Chronic Diseases - Surgical History Surgical History: (x2) - Family History Family History: States: Unknown Family Hx - Home Medications Home Medications: Ambulatory Orders Medication Instructions Recorded Dicyclomine [Dicyclomine HCl] 10 mg PO BID #20 cap 11/14/16 Ibuprofen [Motrin Tab] 800 mg PO Q6H PRN #20 tab 03/14/17 Acetaminophen/Butalbital/Caf 1 tab PO Q4 #10 tab 05/20/17 [Fioricet] Dicyclomine [Bentyl] 20 mg PO QID PRN #20 tab 04/13/18 Ibuprofen [Motrin Tab] 600 mg PO Q8 PRN #60 tab 04/13/18 traMADol [Ultram] 50 mg PO TID #15 tab 04/13/18 Doxycycline Monohydrate 100 mg PO BID #28 tablet 04/23/18 Naproxen 375 mg PO Q8 PRN #21 tablet 04/23/18 Omeprazole Magnesium [Prilosec Otc] 20 mg PO DAILY #14 tablet. 04/23/18 - Allergies Allergies/Adverse Reactions: Allergies Allergy/AdvReac Type Severity Reaction Status Date / Time No Known Allergies Allergy Verified 04/23/18 13:57 Review of Systems ROS Statement: Except As Marked, All Systems Reviewed And Found Negative Gastrointestinal: Positive for: Abdominal Pain (lower) Genitourinary Female: Negative for: Dysuria Physical Exam - Reviewed Nursing Documentation Reviewed: Yes Vital Signs Reviewed: Yes - Physical Exam Appears: Positive for: Non-toxic, No Acute Distress Head Exam: Positive for: ATRAUMATIC, NORMOCEPHALIC Skin: Positive for: Normal Color, Warm, Dry Eye Exam: Positive for: Normal appearance Neck: Positive for: Normal, Painless ROM Cardiovascular/Chest: Positive for: Regular Rate, Rhythm Respiratory: Positive for: Normal Breath Sounds. Negative for: Wheezing, Respiratory Distress Gastrointestinal/Abdominal: Positive for: Tenderness (Mild epigastric and mild RLQ tenderness) Pelvic Exam: Positive for: Blood (noted in vaginal wall), Tender W/Cervical Motion, Tender Adnexa (right) Extremity: Positive for: Normal ROM Neurologic/Psych: Positive for: Alert, Oriented. Negative for: Motor/Sensory Deficits - Laboratory Results Result Diagrams: 04/23/18 14:30 - ECG O2 Sat by Pulse Oximetry: 100 (RA) Pulse Ox Interpretation: Normal Medical Decision Making Medical Decision Making: Initial Plan: --ED urine --ED urine dipstick --CBC --Pepcid 20mg PO --Urine culture --Transvaginal US Old charts reviewed showing patient had an US abd/pelvis. Transvaginal US from 04/13/18 FINDINGS: UTERUS: Measures 7.1 x 5.3 x 3.9 cm. Anteverted. ENDOMETRIUM: Measures 1.2 cm in diameter. CERVIX: No cervical abnormality identified. RIGHT OVARY: Measures 2.1 x 2.8 x 2.9 cm. Blood flow is demonstrated. LEFT OVARY: Measures 3.7 x 2.9 x 1.5 cm. Blood flow is demonstrated. FREE FLUID: No significant free fluid noted. OTHER FINDINGS: None. IMPRESSION: Unremarkable pelvic ultrasound. Abdomen US from 04/13/18 FINDINGS: LIVER: Measures 12.8 cm in sagittal dimension. Echogenic liver may be seen in setting of hepatic parenchymal disease or fatty infiltration. No focal hepatic mass identified. The main portal vein appears patent with normal directional flow. No intrahepatic bile duct dilatation. GALLBLADDER: No gallstones. No gallbladder wall thickening. Negative sonographic King's sign as assessed by the radio survey worker. COMMON BILE DUCT: Measures 4 mm. PANCREAS: Not well visualized. RIGHT KIDNEY: Measures 11.0 x 5.5 x 4.2 cm. No obstructing calculus or hydronephrosis identified. LEFT KIDNEY: Measures 10.0 x 5.1 x 4.9 cm. No obstructing calculus or hydronephrosis identified. SPLEEN: Measures approximately 7.8 cm. AORTA: Limited views appear unremarkable. IVC: Limited views appear unremarkable. OTHER FINDINGS: None. IMPRESSION: Echogenic liver may be seen in setting of hepatic parenchymal disease or fatty infiltration. 16:20 Transvaginal US FINDINGS: UTERUS: Measures 3.7 x 7.1 cm. Normal in size and appearance. No fibroid or other mass lesion seen. ENDOMETRIUM: Measures 10.7 mm in diameter. Unremarkable. CERVIX: No cervical abnormality identified. RIGHT OVARY: Measures 2.2 x 3.6 x 3.7 cm. No solid mass. Normal flow. Multiple subcentimeter follicles. LEFT OVARY: Measures 2.1 x 2.6 x 2.1 cm. No solid mass. Normal flow. Multiple subcentimeter follicles. FREE FLUID: No significant free fluid noted. OTHER FINDINGS: None. IMPRESSION: No significant or acute findings to account for/ related to the clinical presentation. No significant interval change compared to the prior examination(s). ---- Scribe Attestation: Documented by Eduardo Javier acting as a scribe for Lissette CLIFTON Provider Scribe Attestation: All medical record entries made by the Scribe were at my direction and personally dictated by me. I have reviewed the chart and agree that the record accurately reflects my personal performance of the history, physical exam, medical decision making, and the department course for this patient. I have also personally directed, reviewed, and agree with the discharge instructions and disposition. Disposition - Clinical Impression Clinical Impression: Abdominal pain in female - Patient ED Disposition Is Patient to be Admitted: No - Disposition [facility] Disposition: Routine/Home Disposition Time: 16:09 Condition: GOOD Prescriptions: Doxycycline Monohydrate 100 mg PO BID #28 tablet Naproxen 375 mg PO Q8 PRN #21 tablet PRN Reason: Pain, Moderate (4-7) Omeprazole Magnesium [Prilosec Otc] 20 mg PO DAILY #14 tablet. Instructions: Chronic Pelvic Pain in Women Print Language: ROMANIAN
[2018-04-23 14:59] LABS: BASO % 0.2 % (0.0-2.0); EOS # 0.1 K/uL (0.0-0.7); HEMOGLOBIN 12.7 g/dL (12.0-16.0); LYMPH # 2.9 K/uL (1.0-4.3); LYMPH % 29.6 % (20.0-40.0); MEAN CELL VOLUME 87.1 fl (81.0-99.0); MEAN CORPUSCULAR HEMOGLOBIN 28.2 pg (27.0-31.0); MEAN CORPUSCULAR HGB CONC 32.4 g/dL (33.0-37.0); MEAN PLATELET VOLUME 8.4 fl (7.2-11.7); MONO # 0.8 K/uL (0.0-0.8); MONO % 7.6 % (0.0-10.0); NEUT # 6.1 K/uL (1.8-7.0); NEUT % 61.6 % (50.0-75.0); NRBC % 0.1 % (0.0-0.0); RBC 4.49 Mil/uL (3.80-5.20); RED CELL DISTRIBUTION WIDTH 13.1 % (11.5-14.5)
[2018-04-23] MEDS ORDERED: cefTRIAXone (Rocephin) 250 mg Inj IM ONE (16:07)
--- NOTE | 2018-04-23 16:23 | US ---
Date of service: 04/23/2018 HISTORY: Right lower quadrant pain. Menstrual LMP unknown. COMPARISON: 04/13/2018 pelvic ultrasound TECHNIQUE: Transvaginal only. Real -time technique with 2D, duplex and color Doppler FINDINGS: UTERUS: Measures 3.7 x 7.1 cm. Normal in size and appearance. No fibroid or other mass lesion seen. ENDOMETRIUM: Measures 10.7 mm in diameter. Unremarkable. CERVIX: No cervical abnormality identified. RIGHT OVARY: Measures 2.2 x 3.6 x 3.7 cm. No solid mass. Normal flow. Multiple subcentimeter follicles. LEFT OVARY: Measures 2.1 x 2.6 x 2.1 cm. No solid mass. Normal flow. Multiple subcentimeter follicles. FREE FLUID: No significant free fluid noted. OTHER FINDINGS: None. IMPRESSION: No significant or acute findings to account for/ related to the clinical presentation. No significant interval change compared to the prior examination(s).
[2018-04-23] MEDS ORDERED: Sterile Water 10 ML IV ONE (16:38)
[2018-04-23] MEDS ORDERED: cefTRIAXone (Rocephin) 250 mg Inj ONE (16:38)
== END 2018-04-23 17:05 | disposition home or self-care (01) ==
LOC: H.ER 13:30
DX: R10.30 Lower abdominal pain, unspecified (principal); N83.00 Follicular cyst of ovary, unspecified side
CPT/HCPCS: 76830; 81025; 85025; 87086; 87491; 87591; 96372; 99283; J0696

== ENCOUNTER 2018-08-24 13:09 | Emergency (ER) | payer OTHER ==
[2018-08-24 14:24] VITALS: RESP 16; O2SAT 99
[2018-08-24] MEDS ORDERED: Sodium Chloride 0.9% 1,000 ML IV STA (15:39)
--- NOTE | 2018-08-24 15:45 | ED PDOC ---
HPI: Female Pain Time Seen by Provider: 08/24/18 15:11 Chief Complaint (Nursing): Female Genitourinary Chief Complaint (Provider): Suprapubic pain History Per: Patient History/Exam Limitations: no limitations Onset/Duration Of Symptoms: Days Current Symptoms Are (Timing): Still Present Quality Of Discomfort: "Pain" Associated Symptoms: Fever, Nausea, Vomiting, Urinary Symptoms Additional History Per: Patient Additional Complaint(s): 27yo female, otherwise well, comes to ER reporting suprapubic pain as well as right lower back pain x 2 days. She reports associated malaise and states yest erday she had headache as well as bodyaches. Patient has been taking Ibuprofen with no relief of symptoms. She reports associated dysuria, nausea and vomiting. No vaginal bleeding. No additional complaints. Abnormal Vaginal Bleeding: No Past Medical History Reviewed: Historical Data, Nursing Documentation, Vital Signs Vital Signs: Last Vital Signs Temp 98.6 F 08/24/18 14:23 Pulse 67 08/24/18 14:23 Resp 16 08/24/18 14:23 BP 106/69 08/24/18 14:23 Pulse Ox 99 08/24/18 14:23 Primary Care Provider: FAMILY PROVIDER,NO - Medical History PMH: No Chronic Diseases - Surgical History Surgical History: (x2) - Family History Family History: States: No Known Family Hx - Home Medications Home Medications: Ambulatory Orders Medication Instructions Recorded Dicyclomine [Dicyclomine HCl] 10 mg PO BID #20 cap 11/14/16 Ibuprofen [Motrin Tab] 800 mg PO Q6H PRN #20 tab 03/14/17 Acetaminophen/Butalbital/Caf 1 tab PO Q4 #10 tab 05/20/17 [Fioricet] Dicyclomine [Bentyl] 20 mg PO QID PRN #20 tab 04/13/18 Ibuprofen [Motrin Tab] 600 mg PO Q8 PRN #60 tab 04/13/18 traMADol [Ultram] 50 mg PO TID #15 tab 04/13/18 Doxycycline Monohydrate 100 mg PO BID #28 tablet 04/23/18 Naproxen 375 mg PO Q8 PRN #21 tablet 04/23/18 Omeprazole Magnesium [Prilosec Otc] 20 mg PO DAILY #14 tablet 04/23/18 - Allergies Allergies/Adverse Reactions: Allergies Allergy/AdvReac Type Severity Reaction Status Date / Time No Known Allergies Allergy Verified 08/24/18 14:30 Review of Systems ROS Statement: Except As Marked, All Systems Reviewed And Found Negative Constitutional: Positive for: Fever (tactile) Gastrointestinal: Positive for: Nausea, Vomiting, Abdominal Pain Genitourinary Female: Positive for: Dysuria. Negative for: Vaginal Bleeding Musculoskeletal: Positive for: Back Pain Physical Exam - Reviewed Nursing Documentation Reviewed: Yes Vital Signs Reviewed: Yes - Physical Exam Appears: Positive for: Non-toxic, No Acute Distress Head Exam: Positive for: ATRAUMATIC, NORMAL INSPECTION, NORMOCEPHALIC Skin: Positive for: Normal Color Eye Exam: Positive for: Normal appearance Neck: Positive for: Supple Cardiovascular/Chest: Positive for: Regular Rate, Rhythm. Negative for: Tachycardia Respiratory: Positive for: Normal Breath Sounds. Negative for: Respiratory Distress Gastrointestinal/Abdominal: Positive for: Soft, Tenderness (suprapubic). Negative for: Mass, Guarding Back: Positive for: R CVA Tenderness. Negative for: L CVA Tenderness Extremity: Positive for: Normal ROM. Negative for: Pedal Edema, Deformity Neurological/Psych: Positive for: Awake, Alert, Normal Tone - Laboratory Results Result Diagrams: 08/24/18 15:41 08/24/18 15:41 - ECG O2 Sat by Pulse Oximetry: 99 (RA) Pulse Ox Interpretation: Normal Medical Decision Making Medical Decision Making: Impression: Suprapubic and back pain UTI vs. pyelonephritis Plan: -- BMP -- IV Fluids -- Toradol 15mg IV\\ -- Urinalysis 1708 UA reviewed, large amounts of blood nitrates and leuks negative CT w/. contrast ordered to workup for kidney stones. 1844 CT Adomen/Pelvis FINDINGS: Examination limited by motion. LOWER THORAX: No visible consolidation, pleural effusion, or pneumothorax. LIVER: 7 mm right hepatic lobe enhancing focus, indeterminate (coronal image 52). GALLBLADDER AND BILE DUCTS: Unremarkable. PANCREAS: Unremarkable. SPLEEN: Unremarkable. ADRENALS: Unremarkable. KIDNEYS AND URETERS: The kidneys enhance symmetrically. No hydronephrosis or obstructing calculus identified. VASCULATURE: No aortic aneurysm. No atherosclerotic calcification or mural plaque present. BOWEL: Stomach is nondistended. Gastric wall thickening; correlate clinically for possibility of gastritis. Lack of oral contrast limits evaluation for bowel pathology. Bowel loops appear within normal limits of caliber without evidence of obstruction. APPENDIX: The appendix appears within normal limits of caliber. No secondary signs of acute appendicitis. PERITONEUM: No significant free fluid. No definite free air. LYMPH NODES: No bulky adenopathy identified. BLADDER: Unremarkable. REPRODUCTIVE: Uterus is present. BONES: No acute osseous abnormality is detected. OTHER FINDINGS: 6 mm fat containing umbilical hernia. IMPRESSION: 7 mm right hepatic lobe enhancing focus, indeterminate. If indicated, recommend dedicated cross-sectional imaging for further characterization. Additional findings as above. Based on CT findings and nature of pain, LFT's added to labs Patient to be signed out to Dr. Rick pending labs; patient to be d/c home if LFT normal. Scribe Attestation: Documented by Reyna Jefferson acting as a scribe for Rekha Serrato MD. Provider Scribe Attestation: All medical record entries made by the Scribe were at my direction and personally dictated by me. I have reviewed the chart and agree that the record accurately reflects my personal performance of the history, physical exam, medical decision making, and the department course for this patient. I have also personally directed, reviewed, and agree with the discharge instructions and disposition. Disposition - Clinical Impression Clinical Impression: Urinary tract infection - Patient ED Disposition Is Patient to be Admitted: Transfer of Care - Disposition Disposition: Transfer of Care Disposition Time: 18:46 Condition: STABLE Additional Instructions: Take Forms: [employer] (Grenadian) Patient Signed Over To: Namrata Rick
[2018-08-24 15:46] LABS: BASO % 0.5 % (0.0-2.0); EOS # 0.1 K/uL (0.0-0.7); EOS % 2.2 % (0.0-4.0); HEMOGLOBIN 13.2 g/dL (12.0-16.0); LYMPH # 2.8 K/uL (1.0-4.3); LYMPH % 41.9 % (20.0-40.0); MEAN CORPUSCULAR HEMOGLOBIN 28.5 pg (27.0-31.0); MEAN CORPUSCULAR HGB CONC 33.5 g/dL (33.0-37.0); MEAN PLATELET VOLUME 8.6 fl (7.2-11.7); MONO # 0.6 K/uL (0.0-0.8); MONO % 9.2 % (0.0-10.0); NEUT # 3.1 K/uL (1.8-7.0); NEUT % 46.2 % (50.0-75.0); NRBC % 0.1 % (0.0-0.0); RBC 4.65 Mil/uL (3.80-5.20); RED CELL DISTRIBUTION WIDTH 13.9 % (11.5-14.5); WHITE BLOOD COUNT 6.8 K/uL (4.8-10.8)
[2018-08-24 15:57] LABS: BLOOD UREA NITROGEN 13 mg/dl (7-17); CALCIUM 8.5 mg/dL (8.4-10.2); GFR NON-AFRICAN AMERICAN > 60
[2018-08-24 16:41] LABS: SQUAMOUS EPITHIAL 16 /hpf (0-5); URINE BACTERIA RARE (<OCC); URINE BILIRUBIN NEGATIVE (NEGATIVE); URINE BLOOD LARGE (NEGATIVE); URINE CLARITY CLOUDY (Clear); URINE COLOR YELLOW (YELLOW); URINE GLUCOSE (UA) NEG (NEGATIVE); URINE LEUKOCYTE ESTERASE TRACE Leu/uL (Negative); URINE PROTEIN 100 mg/dL (NEGATIVE); URINE UROBILINOGEN 0.2-1.0 mg/dL (0.2-1.0)
[2018-08-24] MEDS ORDERED: Sodium Chloride 0.9% 50 ML IV ONE (17:04)
[2018-08-24] MEDS ORDERED: Iohexol 300 100 ML IJ ONE (17:04)
--- NOTE | 2018-08-24 17:56 | CT ---
Date of service: 08/24/2018 PROCEDURE: CT Abdomen and Pelvis with contrast HISTORY: rule out stones vs pyelonephritis COMPARISON: CT of the abdomen and pelvis with contrast performed 08/10/17 TECHNIQUE: Contrast dose: 95 mL Omnipaque 350 IV Radiation dose: Total exam DLP = 383.9 mGy-cm. This CT exam was performed using one or more of the following dose reduction techniques: Automated exposure control, adjustment of the mA and/or kV according to patient size, and/or use of iterative reconstruction technique. FINDINGS: Examination limited by motion. LOWER THORAX: No visible consolidation, pleural effusion, or pneumothorax. LIVER: 7 mm right hepatic lobe enhancing focus, indeterminate (coronal image 52). GALLBLADDER AND BILE DUCTS: Unremarkable. PANCREAS: Unremarkable. SPLEEN: Unremarkable. ADRENALS: Unremarkable. KIDNEYS AND URETERS: The kidneys enhance symmetrically. No hydronephrosis or obstructing calculus identified. VASCULATURE: No aortic aneurysm. No atherosclerotic calcification or mural plaque present. BOWEL: Stomach is nondistended. Gastric wall thickening; correlate clinically for possibility of gastritis. Lack of oral contrast limits evaluation for bowel pathology. Bowel loops appear within normal limits of caliber without evidence of obstruction. APPENDIX: The appendix appears within normal limits of caliber. No secondary signs of acute appendicitis. PERITONEUM: No significant free fluid. No definite free air. LYMPH NODES: No bulky adenopathy identified. BLADDER: Unremarkable. REPRODUCTIVE: Uterus is present. BONES: No acute osseous abnormality is detected. OTHER FINDINGS: 6 mm fat containing umbilical hernia. IMPRESSION: 7 mm right hepatic lobe enhancing focus, indeterminate. If indicated, recommend dedicated cross-sectional imaging for further characterization. Additional findings as above.
--- NOTE | 2018-08-24 19:26 | ED PDOC ---
- Laboratory Results Result Diagrams: 08/24/18 15:41 08/24/18 15:41 Lab Results: Urine Color Yellow (YELLOW) 08/24/18 16:25 Urine Clarity Cloudy (Clear) 08/24/18 16:25 Urine pH 6.0 (5.0-8.0) 08/24/18 16:25 Ur Specific [place] 1.027 (1.003-1.030) 08/24/18 16:25 Urine Protein 100 mg/dL (NEGATIVE) 08/24/18 16:25 Urine Glucose (UA) Neg mg/dL (NEGATIVE) 08/24/18 16:25 Urine Ketones Negative mg/dL (NEGATIVE) 08/24/18 16:25 Urine Blood Large (NEGATIVE) 08/24/18 16:25 Urine Nitrate Negative (NEGATIVE) 08/24/18 16:25 Urine Bilirubin Negative (NEGATIVE) 08/24/18 16:25 Urine Urobilinogen 0.2-1.0 mg/dL (0.2-1.0) 08/24/18 16:25 Ur Leukocyte Esterase Trace Pilar/uL (Negative) 08/24/18 16:25 Urine RBC (Auto) 3311 /hpf (0-3) H 08/24/18 16:25 Urine Microscopic WBC 21 /hpf (0-5) H 08/24/18 16:25 Ur Squamous Epith Cells 16 /hpf (0-5) H 08/24/18 16:25 Urine Bacteria Rare (<OCC) 08/24/18 16:25 - ECG O2 Sat by Pulse Oximetry: 99 (RA) Pulse Ox Interpretation: Normal Medical Decision Making Medical Decision Makin Patient signed out to me by Dr. Serrato pending LFT results, reassessment. 2028 Labs reviewed, liver panel normal Patient reports improvement with symptoms. Patient to be discharged home with prescription for keflex. Return precautions given. Scribe Attestation: Documented by Reyna Jefferson acting as a scribe for Namrata Rick MD. Provider Scribe Attestation: All medical record entries made by the Scribe were at my direction and personally dictated by me. I have reviewed the chart and agree that the record accurately reflects my personal performance of the history, physical exam, medical decision making, and the department course for this patient. I have also personally directed, reviewed, and agree with the discharge instructions and disposition. Disposition - Clinical Impression Clinical Impression: Urinary tract infection - POA Present On Arrival: None - Disposition Disposition: Routine/Home Disposition Time: 20:30 Condition: STABLE Additional Instructions: Take antibiotics as prescribed follow up with your doctor in clinic in 1-2 days return to the ED with any worsening or concerning symptoms Prescriptions: Cephalexin [cephalexin] 500 mg PO QID #40 cap Instructions: Urinary Tract Infection, Adult (DC) Forms: Glad to Have You (Arabic)
[2018-08-24 19:37] LABS: ALB/GLOB RATIO 1.4 (1.0-2.1); ALBUMIN 4.3 g/dL (3.5-5.0); BILIRUBIN,DIRECT 0.3 mg/ml (0.0-0.4)
[2018-08-24 20:51] VITALS: BP 113/71; PULSE 74; TEMP 98.2
== END 2018-08-24 20:50 | disposition home or self-care (01) ==
LOC: H.ER 13:09
DX: N39.0 Urinary tract infection, site not specified (principal)
CPT/HCPCS: 74177; 80048; 80076; 81003; 81025; 85025; 96374; 99284; J1885; J7030; Q9967